=== PATIENT | male | born 1950 | race Caucasian/White ===

== ENCOUNTER 2016-10-11 19:36 | Emergency (ER) | payer MEDICARE ==
[~2016-10-11] VITALS: Ht 162.6 cm; Wt 66.8 kg
[~2016-10-11 19:36] MED LIST: ASPI81 PO; ATOR40TA28 PO; LOSA-30 PO
[2016-10-11 21:07] VITALS: BP 116/75
== END 2016-10-11 21:14 | disposition home or self-care (01) ==
LOC: EMS 19:38
DX: I10 Essential (primary) hypertension (principal); E78.00 Pure hypercholesterolemia, unspecified; R51 Headache; Z79.82 Long term (current) use of aspirin
CPT/HCPCS: 99281; 99283